=== PATIENT | male | born 1970 | race Caucasian/White ===

== ENCOUNTER 2017-12-20 09:46 | Day surgery (SDC) | payer BC ==
[~2017-12-20 09:46] MED LIST: ACETAMINOPHEN 1,000 MG/100 ML BTL IV ONE; CEFAZOLIN 2 Gram 2 GM/50 ML BAG IVPB ONE; FAMOTIDINE 20MG TABLET PO ONE; MECLIZINE 25 MG TABLET PO ONE; METOCLOPRAMIDE 10 MG TABLET PO ONE
[2017-12-20] MEDS ORDERED: DEXAMETHASONE 4 MG/ML 1ML VIAL IVP ONE (09:47)
[2017-12-20] MEDS ORDERED: KETAMINE HCL 100MG/1ML VIAL INJ ONE (09:47)
[2017-12-20] MEDS ORDERED: PROPOFOL 10 MG/ML VIAL IV ONE (09:47)
[2017-12-20] MEDS ORDERED: BUPIVACAINE LIPOSOME/PF 133MG/10ML VIAL IV ONE ×2 (09:47)
[2017-12-20] MEDS ORDERED: BUPIVACAINE 0.5% W/EPI MPF 30 ML VIAL IVP ONE (09:47)
[2017-12-20] MEDS ORDERED: SEVOFLURANE 250 ML INH ONE (09:47)
[2017-12-20] MEDS ORDERED: MIDAZOLAM HCL 2MG/2ML VIAL IV ONE (09:47)
[2017-12-20] MEDS ORDERED: BUPIVACAINE 0.5% (5MG/ML) PF 30ML VIAL IVP ONE (09:47)
--- NOTE | 2017-12-22 10:10 | Operative Note ---
DATE OF SURGERY: 12/20/2017 PREOPERATIVE DIAGNOSIS: Question tear of the rotator cuff on the left with impingement. POSTOPERATIVE DIAGNOSES: 1. Diffuse synovitis of left shoulder. 2. Adhesive capsulitis, left shoulder. 3. Severe external impingement, left shoulder. 4. Arthrosis left distal clavicle. OPERATION: 1. Left shoulder arthroscopy with subtotal synovectomy. 2. Left shoulder open acromioplasty, CA ligament resection, subacromial bursectomy. 3. Left shoulder distal clavicle resection. 4. Left shoulder manipulation under anesthesia. Staff Surgeon: Raul Haile MD Anesthesia: General. Preparation: Chloraprep. Individual Considerations: None. PROCEDURE: The patient was taken to the operating room and placed supine on the operating room table. He initially he had it just tried with a block but he ended up having a general anesthetic. He was prepped and draped in the usual fashion after being placed in a semi-seated beach chair position. The patient did have adhesive capsulitis in the shoulder. At about 90 degrees of abduction and forward flexion, there was resistance. I was able to manipulate him into full abduction and forward flexion rotation. He was prepped and draped in the usual fashion. The patient had a posterior portal identified for arthroscopy. Skin was infiltrated with 0.5% Marcaine with epinephrine prior. An 18-gauge spinal needle was placed in the joint, and the joint was inflated with normal saline with a 60-mL syringe. A stab wound was made, and a blunt-tipped trocar for the scope was placed in the joint, and the joint was inflated with normal saline. An anterior accessory portal was made just inferior to the intact long head of the biceps tendon in a retrograde fashion with a Wissinger maria esther, and the joint was irrigated out. The patient's rotator cuff was injected but it was not torn. There was some synovitis I would say around the long head and anteriorly. This was debrided with a shaver. The rest of it looked pretty good but the inferior pouch was clear. The subscap tendon was normal. Long head was normal. Glenohumeral joint was normal. After irrigation, closed with pancho. The patient had anterior approach to the subacromial space and distal clavicle. Skin was again infiltrated with 0.5% Marcaine with epinephrine prior. Sharp dissection carried down through skin and subcutaneous tissue. Small veins were coagulated with a Bovie. An anterior deltoid interval was developed. Care was taken not to split the deltoid more than about 4 cm distal to the anterior tip of the acromion to prevent injury to the axillary nerve. Once in the subacromial space, there was a very tight subacromial space with down-sloping acromion with spurs and spurs at the distal clavicle. The deltoid was then taken subperiosteally off the anterior aspect of the acromion, over the top of the intact CA ligament, and off the anterior aspect of the degenerated distal clavicle. CA ligament was resected with a Bovie. About 1 cm distal clavicle was resected with an oscillating saw. A down-sloping acromion was resected using an oscillating saw taking less than 1 cm and tapering to a wedge posteriorly and medially to include the spurs at the AC joint. The undersurface was smoothed with a rasp. I now was able to do a complete bursectomy. I had a good look at the rotator cuff and I could see what I was seeing at the ultrasound. There was an area of the supraspinatus tendon which was planed off, and I would say it was planed off maybe 25% but there was no full-thickness tear to repair. I put the shoulder through a full range of motion to ensure no further impingement. At this point, I placed a 22-gauge needle through the skin and into the joint. After irrigation, I reattached the deltoid to the remaining acromion with multiple interrupted #2 Vicryl going directly to the bony acromion. The periosteal cup and distal clavicle were closed with a running #2 Vicryl. Anterior deltoid interval was closed with a running #1 Vicryl. Subcu was closed with 3-0 plus Vicryl. Skin was closed with pancho. I then mixed 40 mg of Depo-Medrol with about 4 mL of 0.5% Marcaine with epinephrine and injected into the 22-gauge needle which was previously placed into the joint. I then placed in an 18-guage needle into the subacromial space and injected that with about 15 mL of 0.5% Marcaine with epinephrine along with 10 mg of morphine. A sterile bulky compressive dressing and sling were applied. The patient tolerated procedure well. Needle and sponge counts were correct. Estimated blood loss was minimal. The patient was taken back to recovery in good condition and no complications. MARIO
== END 2017-12-20 15:00 | disposition home or self-care (01) ==
LOC: SUR 09:46
PROVIDERS: ATTEND Orthopaedic Surgery
DX: M75.42 Impingement syndrome of left shoulder (principal); M75.02 Adhesive capsulitis of left shoulder; M65.812 Other synovitis and tenosynovitis, left shoulder; M19.012 Primary osteoarthritis, left shoulder; I10 Essential (primary) hypertension; K21.9 Gastro-esophageal reflux disease without esophagitis
CPT/HCPCS: 29820; 23700; 23125; 23130; 01630; 64418; J0690; C9290; 76942